=== PATIENT | female | born 1950 | race Caucasian/White ===

== ENCOUNTER 2016-11-30 16:58 | Emergency (ER) | payer OTHER ==
[~2016-11-30] VITALS: Ht 160 cm; Wt 52.0 kg
[~2016-11-30 16:58] MED LIST: BUPR150T3 PO; PROZ40CA PO; TYLE3 PO
[2016-11-30 17:01] VITALS: BP 142/83; PULSE 110; RESP 16; TEMP 97.9; O2SAT 99
[2016-11-30] MEDS ORDERED: PROPARACAINE HCL 0.5% OPHT SOLN 15 ML BTL LEFT EYE ONE (17:15)
[2016-11-30] MEDS ORDERED: BUPR300T PO (17:29)
[2016-11-30] MEDS ORDERED: HYDR4TAB PO (17:29)
[2016-11-30] MEDS ORDERED: ESCI20TA PO (17:29)
[2016-11-30] MEDS ORDERED: LORA1TAB12 PO (17:29)
[2016-11-30] MEDS ORDERED: AFIN10TA2 (17:29)
--- NOTE | 2016-11-30 17:36 | PD ---
HPI Chief Complaint: Eye Problems/Injury Time Seen by Provider: 17:30 Travel History International Travel<30 days: No Contact w/Intl Traveler<30days: No Traveled to known affect area: No History of Present Illness HPI 66-year-old female that presents to the ED for evaluation of left eye pain and blurry vision. Per patient she's had pain to left side of her face for about 2 weeks now. Per patient he wasn't too bad that today she developed severe pain in her left eye with movement. Per patient she has no pain otherwise. She denies any injuries to the eye. She does have a history of glaucoma and states that she worse glasses normally but she states that she's not able to open her eye mostly because she has a lot of pain. She does have a lot of tearing. She has no allergies to medication. She takes no medications for the eye. She states that she had tonight evaluation of a year ago which daughter her on glasses. She does have a history of breast cancer with metastasis. Per patient she takes chemotherapy for this. She denies any metastases to the brain or head. She states that she is able to see but she sees blurry and she cannot read numbers or letters. She does state that she has a history of a floater. She has no allergies to medication. She has not taken anything for this. Per patient the pain is 9 out of 10. Gets worse with movement. Nothing seems to make it better or worse. PFSH Past Medical History Cancer: Yes (breast CA) Diminished Hearing: No Tetanus Vaccination: > 5 Years Influenza Vaccination: No ?: Not Tubal Ligation: Yes Past Surgical History Gynecologic Surgery: Yes (LEFT LUMPECTOMY) Other Surgery: Yes (CARPAL TUNNEL RELEASE RIGHT HAND) Social History Alcohol Use: Yes (SOCIAL) Tobacco Use: No Substance Use: No Allergies-Medications (Allergen,Severity, Reaction): Coded Allergies: No Known Allergies (Verified , 11/30/16) Reported Meds & Prescriptions Reported Meds & Active Scripts Active Reported Bupropion HCl ER 24 HR (Bupropion HCl) 300 Mg Tab 300 Mg PO DAILY Hydromorphone (Hydromorphone HCl) 4 Mg Tab 4 Mg PO Q4-6H PRN Lorazepam 1 Mg Tab 1 Mg PO DAILY PRN Escitalopram (Escitalopram Oxalate) 20 Mg Tab 20 Mg PO DAILY Afinitor (Everolimus) 10 Mg Tab Review of Systems Except as stated in HPI: all other systems reviewed are Neg Physical Exam Narrative GENERAL: SKIN: Warm and dry. HEAD: Atraumatic. Normocephalic. EYES: Pupils equal and round 4 mm reactive to light and accommodation.. No scleral icterus. No injection or drainage. EOM intact bilaterally but has reproducible pain with looking up and down. More with looking down than looking up. Able to do it however. Patient has no sign of foreign body or deformity with inversion of the eyelids as well as with fluorescein stain. Ophthalmic exam revealed no sign of vessel disease but hard to assess secondary to cataract. No obvious papilledema noted. IOP was 18, 19, 17. ENT: No nasal bleeding or discharge. Mucous membranes pink and moist. Tongue is midline. No uvula deviation. No lymphadenopathy noted. TMs are clear with no sign of infection or perforation. No mastoid tenderness bilaterally. No rashes noted. No sinus tenderness noted. NECK: Trachea midline. No JVD. CARDIOVASCULAR: Regular rate and rhythm. RESPIRATORY: No accessory muscle use. Clear to auscultation. Breath sounds equal bilaterally. GASTROINTESTINAL: Abdomen soft, non-tender, nondistended. Hepatic and splenic margins not palpable. MUSCULOSKELETAL: Extremities without clubbing, cyanosis, or edema. No obvious deformities. NEUROLOGICAL: Awake and alert. No obvious cranial nerve deficits. Motor grossly within normal limits. Five out of 5 muscle strength in the arms and legs. Normal speech. PSYCHIATRIC: Appropriate mood and affect; insight and judgment normal. Data Data Last Documented VS Vital Signs Date Time Temp Pulse Resp B/P Pulse Ox O2 Delivery O2 Flow Rate FiO2 11/30/16 17:01 97.9 110 16 142/83 99 Orders Proparacaine 0.5% Opth Soln (Alcaine 0.5 (11/30/16 17:15) Complete Blood Count With Diff (11/30/16 17:25) Basic Metabolic Panel (Bmp) (11/30/16 17:25) C-Reactive Protein (Crp) (11/30/16 17:25) Westergren Sedimentation Rate (11/30/16 17:25) Magnesium (Mg) (11/30/16 17:25) Mri Brain W&W/O Contrast (11/30/16 ) Gadodiamide Pf Inj (Omniscan Pf Inj) (11/30/16 19:06) Prednisone (Deltasone) (11/30/16 20:00) Prednisone (Deltasone) (12/01/16 20:00) Admit To Inpatient (11/30/16 ) Vital Signs (Adult) Q4H (11/30/16 19:54) Neuro Checks Q4H (11/30/16 19:54) Activity Oob With Assistance (11/30/16 19:54) Diet Regular Basic (12/01/16 Breakfast) Sodium Chlor 0.9% 1000 Ml Inj (Ns 1000 M (11/30/16 19:54) Sodium Chloride 0.9% Flush (Ns Flush) (11/30/16 20:00) Sodium Chloride 0.9% Flush (Ns Flush) (11/30/16 21:00) Ondansetron Inj (Zofran Inj) (11/30/16 20:00) Bisacodyl Supp (Dulcolax Supp) (11/30/16 20:00) Comprehensive Metabolic Panel (12/01/16 06:00) Complete Blood Count With Diff (12/01/16 06:00) Scd Bilateral/Knee High ANGELA.BID (11/30/16 19:54) Adrián Bilateral/Knee High ANGELA.QSHIFT (11/30/16 19:54) Acetaminophen (Tylenol) (11/30/16 20:00) Acetamin-Hydrocod 325-5 Mg ([place] 5-325 (11/30/16 20:00) Morphine Inj (Morphine Inj) (11/30/16 20:00) Inpatient Certification (11/30/16 ) Admit Order (Ed Use Only) (11/30/16 20:14) Consult Ophthalmology (11/30/16 ) Labs Laboratory Tests Test 11/30/16 17:35 White Blood Count 3.9 TH/MM3 Red Blood Count 3.75 MIL/MM3 Hemoglobin 10.6 GM/DL Hematocrit 30.9 % Mean Corpuscular Volume 82.3 FL Mean Corpuscular Hemoglobin 28.1 PG Mean Corpuscular Hemoglobin 34.2 % Concent Red Cell Distribution Width 13.0 % Platelet Count 231 TH/MM3 Mean Platelet Volume 7.5 FL Neutrophils (%) (Auto) 63.1 % Lymphocytes (%) (Auto) 22.7 % Monocytes (%) (Auto) 8.2 % Eosinophils (%) (Auto) 2.6 % Basophils (%) (Auto) 3.4 % Neutrophils # (Auto) 2.5 TH/MM3 Lymphocytes # (Auto) 0.9 TH/MM3 Monocytes # (Auto) 0.3 TH/MM3 Eosinophils # (Auto) 0.1 TH/MM3 Basophils # (Auto) 0.1 TH/MM3 CBC Comment DIFF FINAL Differential Comment Erythrocyte Sedimentation Rate 107 mm/hr Sodium Level 143 MEQ/L Potassium Level 3.8 MEQ/L Chloride Level 106 MEQ/L Carbon Dioxide Level 28.2 MEQ/L Anion Gap 9 MEQ/L Blood Urea Nitrogen 12 MG/DL Creatinine 0.95 MG/DL Estimat Glomerular Filtration 59 ML/MIN Rate Random Glucose 101 MG/DL Calcium Level 9.2 MG/DL Magnesium Level 2.3 MG/DL C-Reactive Protein 23.00 MG/DL MDM Medical Decision Making Medical Screen Exam Complete: Yes Emergency Medical Condition: Yes Medical Record Reviewed: Yes Interpretation(s) CBC & BMP Diagram 11/30/16 17:35 ESR 100. CRP in the 20s Last Impressions Brain MRI 11/30/16 0000 Signed Impressions: Service Date/Time: Friday, November 30, 2016 19:00 - CONCLUSION: 1. Mild chronic white matter changes bilaterally characteristic of ischemic demyelination. 2. Sinus disease involving the left ethmoid and maxillary sinuses. Finn Driscoll MD Differential Diagnosis Glaucoma versus eye pain versus optic neuritis versus metastatic mass versus loss of vision versus facial pain versus infection Narrative Course 66-year-old female that presents to the ED for evaluation of left eye pain with no injury. Patient was properly examined and was found to have signs and symptoms of unclear etiology. Physical exam of the eye did not reveal any sign of deformity, foreign body, glaucoma at this time. Patient only has pain with range of motion of the eye. She does have a history of metastatic breast cancer. This time case was discussed in my attending Dr. Norwood who agrees that MRI and lab work recommended. Patient will be given IV pain medications. Patient agrees to proceed with workup. Labs and imaging came back essentially unremarkable except for elevated ESR and CRP. Case discussed with my attending Dr. Norwood who recommends speaking with ophthalmology. I spoke with ophthalmology who agrees to this is concerning for temporal arteritis. He recommends starting the patient on 100 mg of prednisone daily and he will reevaluate tomorrow. He wants also to see there is a Gen. surgery consultation to Be done to get temporal artery biopsy. Case was discussed with Dr. Gregory for hip as well as agrees to admission but wanted me to consult with general surgery to see whether patient is to stay at the [facility] or the main hospital. Dr. Recio spoke with my attending who recommends that the patient can stay at [facility] for now. Diagnosis Primary Impression: Temporal arteritis Admitting Information Admitting Physician Requests: Observation Benson Wakefield Nov 30, 2016 17:36
[2016-11-30 17:49] LABS: AUTOMATED NEUTROPHIL # 2.5 TH/MM3 (1.8-7.7); BASOPHIL # 0.1 TH/MM3 (0-0.2); BASOPHIL % 3.4 % (0.0-2.0); EOSINOPHIL # 0.1 TH/MM3 (0-0.4); EOSINOPHIL % 2.6 % (0.0-4.0); HEMATOCRIT 30.9 % (35.0-46.0); HEMO FLAGS DIFF FINAL; LYMPH % 22.7 % (9.0-44.0); LYMPHOCYTE # 0.9 TH/MM3 (1.0-4.8); MEAN CELL VOLUME 82.3 FL (80.0-100.0); MEAN CORPUSCULAR HEMOGLOBIN 28.1 PG (27.0-34.0); MEAN CORPUSCULAR HGB CONC 34.2 % (32.0-36.0); MONO % 8.2 % (0.0-8.0); NEUT % 63.1 % (16.0-70.0); PLATELET COUNT 231 TH/MM3 (150-450); RED BLOOD COUNT 3.75 MIL/MM3 (4.00-5.30); WHITE BLOOD COUNT 3.9 TH/MM3 (4.0-11.0)
[2016-11-30 17:56] LABS: POTASSIUM 3.8 MEQ/L (3.5-5.1)
[2016-11-30 18:00] LABS: BICARBONATE 28.2 MEQ/L (21.0-32.0); MAGNESIUM 2.3 MG/DL (1.5-2.5)
[2016-11-30] MEDS ORDERED: GADODIAMIDE PF 287 MG/ML 10 ML VIAL (for RAD MRI) IV ONE (19:06)
--- NOTE | 2016-11-30 19:31 | RADHPO ---
EXAM DATE/TIME: 11/30/2016 19:00 [facility] COMPARISON: No previous studies available for comparison. INDICATIONS : Left eye pain, and blurred vision. CONTRAST: 10 cc Omniscan (gadodiamide) IV MEDICAL HISTORY : Carcinoma, breast. SURGICAL HISTORY : Tubal ligation. Breast lumpectomy. ENCOUNTER: Initial ACUITY: 1 day PAIN SCORE: 7/10 LOCATION: Left eye TECHNIQUE: Multiplanar, multisequence MRI of the brain was performed both prior to and following the administrat ion of paramagnetic contrast. FINDINGS: CEREBRUM: The ventricles are normal for age. No evidence of midline shift, mass lesion, hemorrhage or acute in farction. No extraaxial fluid collections are seen. The pituitary gland and suprasellar cistern are normal in configuration. WHITE MATTER: No significant signal abnormalities are seen in the white matter. A few high signal spots are seen in the white matter tracts bilaterally characteristic of ischemic demyelinization. POSTERIOR FOSSA: The cerebellum and brainstem are intact. The 4th ventricle is midline. The cerebellopontine angle is unremarkable. The cerebellar tonsils are normal in position. DIFFUSION IMAGING: No focal areas of restricted diffusion are seen. No evidence of acute infarction. EXTRACRANIAL: The visualized portions of the orbits are unremarkable. Sclerotic sinus disease with opacification of the left maxillary sinus. There is sinus disease in the left ethmoid sinuses. POST-CONTRAST: No abnormal areas of parenchymal or dural enhancement. No evidence of blood-brain barrier breakdown. CONCLUSION: 1. Mild chronic white matter changes bilaterally characteristic of ischemic demyelination. 2. Sinus disease involving the left ethmoid and maxillary sinuses. Finn Driscoll MD on November 30, 2016 at 19:26 Board Certified Radiologist. This report was verified electronically.
[2016-11-30] MEDS ORDERED: predniSONE 50 MG TAB PO ONE (20:00)
[2016-11-30] MEDS ORDERED: MORPHINE SULFATE 4 MG/ML INJ IV PRN (20:00)
[2016-11-30] MEDS ORDERED: BISACODYL 10 MG SUPP RECTAL PRN (20:00)
[2016-11-30] MEDS ORDERED: ONDANSETRON HCL 4 MG/2 ML VIAL IVP PRN (20:00)
[2016-11-30] MEDS ORDERED: SODIUM CHLORIDE 0.9% FLUSH 10 ML FLUSH IV FLUSH PRN (20:00)
[2016-11-30] MEDS ORDERED: ACETAMINOPHEN 325 MG TAB PO PRN (20:00)
[2016-11-30] MEDS ORDERED: ACETAMINOPHEN/HYDROcodone 325 MG/5 MG TAB PO PRN (20:00)
[2016-11-30 20:26] VITALS: BP 135/74; PULSE 106; RESP 18; O2SAT 96
[2016-11-30] MEDS: SODIUM CHLOR 0.9% 1000 ML INJ 1,000 ML IV SCH (20:42)
[2016-11-30] MEDS: SODIUM CHLORIDE 0.9% FLUSH 10 ML FLUSH IV FLUSH SCH (20:59)
[2016-12-01 00:26] VITALS: BP 129/75; PULSE 91; RESP 18; TEMP 99.8; O2SAT 94
[2016-12-01] MEDS: SODIUM CHLOR 0.9% 1000 ML INJ 1,000 ML IV SCH (05:54)
[2016-12-01 06:44] LABS: BASOPHIL % 0.1 % (0.0-2.0); EOSINOPHIL % 0.6 % (0.0-4.0); HEMATOCRIT 29.7 % (35.0-46.0); HEMO FLAGS DIFF FINAL; LYMPH % 12.9 % (9.0-44.0); LYMPHOCYTE # 0.4 TH/MM3 (1.0-4.8); MEAN CELL VOLUME 82.2 FL (80.0-100.0); MEAN CORPUSCULAR HEMOGLOBIN 27.8 PG (27.0-34.0); MEAN CORPUSCULAR HGB CONC 33.8 % (32.0-36.0); NEUT % 85.4 % (16.0-70.0); PLATELET COUNT 238 TH/MM3 (150-450); RED BLOOD COUNT 3.62 MIL/MM3 (4.00-5.30); RED CELL DISTRIBUTION WIDTH 12.4 % (11.6-17.2); WHITE BLOOD COUNT 3.4 TH/MM3 (4.0-11.0)
[2016-12-01 06:53] LABS: CHLORIDE 109 MEQ/L (98-107); SODIUM (NA) 144 MEQ/L (136-145)
[2016-12-01 07:13] LABS: ALKALINE PHOSPHATASE 101 U/L (45-117); ALT (GPT) 28 U/L (10-53); ANION GAP 10 MEQ/L (5-15); AST (GOT) 20 U/L (15-37); BLOOD UREA NITROGEN 12 MG/DL (7-18); GLOMERULAR FILTRATION RATE 77 ML/MIN (>89); TOTAL BILIRUBIN ADULT 0.3 MG/DL (0.2-1.0)
[2016-12-01 08:00] VITALS: BP 109/73; PULSE 105; RESP 18; TEMP 96.1; O2SAT 98
[2016-12-01] MEDS: SODIUM CHLORIDE 0.9% FLUSH 10 ML FLUSH IV FLUSH SCH (08:23)
--- NOTE | 2016-12-01 09:51 | MB ---
cc: MIKKI GARNER M.D. DATE OF CONSULTATION: 12/01/2016 REASON FOR CONSULTATION: Left eye pain. REQUESTING PHYSICIAN Dr. Benson Wakefield in the ER. HISTORY OF PRESENT ILLNESS The patient is a 66-year-old female with a 2-3 week history of left-sided facial pain and headache (the patient states she never "has headaches"). In the past couple of days she has had increasing left-sided orbital pain with eye movement. To me today, she denies any real change in vision recently. She was evaluated in the ED last night. Her MRI showed some left-sided ethmoid and maxillary sinus disease. Her sed rate and C-reactive protein were both markedly elevated. The patient was admitted for high-dose steroids, initiation of workup for giant cell arteritis. PAST MEDICAL HISTORY Metastatic breast cancer, on chemotherapy. PAST SURGICAL HISTORY Breast surgery and carpal tunnel. MEDICATION/ALLERGIES See chart. PHYSICAL EXAMINATION The physical examination is limited to the eyes and ocular adnexa. Visual acuity using her current correction (prescription sunglasses) is about 20/40 in each eye using a hand-held near card. Ocular motility is full. There is no Eliel Mary pupil. Penlight examinations of anterior segment is normal except for mild cataract in each eye. Fundus examination shows basically no obvious pathology. There was no optic nerve head edema. IMPRESSION A 66-year-old female with metastatic breast cancer with new onset of facial pain, pain with eye movement and headache. There is no evidence or complaint of acute vision loss. There is no complaints of scalp tenderness or claudication suggestive of temporal arteritis. Her sed rate and C-reactive protein (of course completely nonspecific for giant cell arteritis) are markedly elevated. Certainly the patient warrants workup for giant cell arteritis. She can be discharged to home on 100 mg per day of oral prednisone, as long as her primary care doctor is on board, and she has an evaluation to be seen for a temporal artery biopsy within no more than 10-14 days. Of course if the biopsy is negative, then the duration of prednisone treatment really relies on clinical suspicion. Due to the patient's insurance, I will not be able to see her after discharge, so another important aspect is to make sure she has opthalmology followup with one of the [employer] "eye doctors". MD ZAID Hutson /9:25 AM 9:34 AM
[2016-12-01] MEDS ORDERED: INFLUENZA VIRUS VACCINE (QUADRIVALENT) 0.5 ML SYR IM ONE (10:00)
[2016-12-01] MEDS ORDERED: PNEUMOCOCCAL POLYVALENT INJ 25 MCG/0.5 ML SYR IM ONE (10:00)
[2016-12-01] MEDS ORDERED: PRED50 PO (10:03)
[2016-12-01 12:00] VITALS: BP 110/70; PULSE 90; RESP 18; TEMP 96.4; O2SAT 98
--- NOTE | 2016-12-01 19:56 | HHI.HP ---
HPI Service [facility] Primary Care Physician Suzi Palacios M.D. Admission Diagnosis temporal arteritis Diagnoses: Travel History International Travel<30 Days: No Contact w/Intl Traveler <30 Da: No Traveled to Known Affected Are: No History of Present Illness 66-year-old female who presents to the ER with a 3 week history of constant worsening left frontotemporal pain which is worse with eye movement. She has chronic poor vision, but no recent vision changes. She denies any fevers, chills, nausea, vomiting, chest pain, shortness of breath, lightheadedness, dizziness, focal weakness, and says she otherwise feels all right. She does have a history of breast cancer status post resection for which she continues on chemotherapy. She reports that this is in remission. She does have a history of depression. Denies any suicidal ideation. Review of Systems performed and negative except for HPI and past medical history. Past Family Social History Past Medical History Breast cancer status post resection. On chemotherapy. Follows with Dr. mohr Depression. Past Surgical History Surgical repair of right wrist fracture. Lumpectomy of left breast Reported Medications Reported Meds & Active Scripts Active Reported Bupropion HCl ER 24 HR (Bupropion HCl) 300 Mg Tab 300 Mg PO DAILY Hydromorphone (Hydromorphone HCl) 4 Mg Tab 4 Mg PO Q4-6H PRN Lorazepam 1 Mg Tab 1 Mg PO DAILY PRN Escitalopram (Escitalopram Oxalate) 20 Mg Tab 20 Mg PO DAILY Afinitor (Everolimus) 10 Mg Tab Allergies: Coded Allergies: No Known Allergies (Verified , 11/30/16) Family History Patient reports that both of her parents in their 80s and 90s secondary to strokes Social History Nonsmoker. Nondrinker. Denies any illicit drugs. Physical Exam Vital Signs Vital Signs Date Time Temp Pulse Resp B/P Pulse Ox O2 Delivery O2 Flow Rate FiO2 12/01/16 12:00 96.4 90 18 110/70 98 12/01/16 08:00 96.1 105 18 109/73 98 12/01/16 00:26 99.8 91 18 129/75 94 11/30/16 20:26 106 18 135/74 96 Room Air Physical Exam GENERAL: This is a well-nourished, well-developed patient, in no apparent distress.alert and oriented 3. SKIN: No rashes, ecchymoses or lesions. Cool and dry. HEAD: Atraumatic. Normocephalic. No temporal or scalp tenderness. EYES: Pupils equal round and reactive. Extraocular motions intact. No scleral icterus. No injection or drainage. ENT: Nose without bleeding, purulent drainage or septal hematoma. Throat without erythema, tonsillar hypertrophy or exudate. Uvula midline. Airway patent. NECK: Trachea midline. No JVD or lymphadenopathy. Supple, nontender, no meningeal signs. CARDIOVASCULAR: Regular rate and rhythm without murmurs, gallops, or rubs. RESPIRATORY: Clear to auscultation. Breath sounds equal bilaterally. No wheezes , rales, or rhonchi. GASTROINTESTINAL: Abdomen soft, non-tender, nondistended. No hepato-splenomegaly , or palpable masses. No guarding. MUSCULOSKELETAL: Extremities without clubbing, cyanosis, or edema. No joint tenderness, effusion, or edema noted. No calf tenderness. Negative Homans sign bilaterally. NEUROLOGICAL: Awake and alert. Cranial nerves II through XII intact. Motor and sensory grossly within normal limits. Five out of 5 muscle strength in all muscle groups. Normal speech. Laboratory Laboratory Tests Test 12/01/16 06:27 White Blood Count 3.4 Red Blood Count 3.62 Hemoglobin 10.1 Hematocrit 29.7 Mean Corpuscular Volume 82.2 Mean Corpuscular Hemoglobin 27.8 Mean Corpuscular Hemoglobin 33.8 Concent Red Cell Distribution Width 12.4 Platelet Count 238 Mean Platelet Volume 7.2 Neutrophils (%) (Auto) 85.4 Lymphocytes (%) (Auto) 12.9 Monocytes (%) (Auto) 1.0 Eosinophils (%) (Auto) 0.6 Basophils (%) (Auto) 0.1 Neutrophils # (Auto) 3.0 Lymphocytes # (Auto) 0.4 Monocytes # (Auto) 0.0 Eosinophils # (Auto) 0.0 Basophils # (Auto) 0.0 CBC Comment DIFF FINAL Differential Comment Sodium Level 144 Potassium Level 4.0 Chloride Level 109 Carbon Dioxide Level 25.0 Anion Gap 10 Blood Urea Nitrogen 12 Creatinine 0.75 Estimat Glomerular Filtration 77 Rate Random Glucose 160 Calcium Level 8.3 Total Bilirubin 0.3 Aspartate Amino Transf 20 (AST/SGOT) Alanine Aminotransferase 28 (ALT/SGPT) Alkaline Phosphatase 101 Total Protein 6.6 Albumin 2.4 Result Diagram: 12/01/1662612/01/16626 Assessment and Plan Assessment and Plan Suspected temporal arteritis. -High-dose prednisone, to be tapered by primary care. -Patient was urged to follow with primary care, will need ophthalmology follow- up as outpatient as well. -Patient seen by ophthalmology. Appreciate assistance. -Appreciate case management assistance. We will arrange for biopsy of temporal artery within the next 10-14 days. Discussed with patient, who conveys understanding. //Leukopenia. No signs of acute infection. Could be secondary to autoimmune process. Follow-up primary care. Breast cancer. Patient will follow-up with primary oncologist. Depression. Chronic. Continue home medications. Prophylaxis. Patient is ambulatory. Discussed Condition With patient, nurse, case finisher. Jeremy Pagan MD Dec 01, 2016 19:56
[2016-12-01] MEDS ORDERED: predniSONE 50 MG TAB PO SCH (20:00)
== END 2016-12-01 14:00 | disposition home or self-care (01) ==
LOC: PHEFT 16:58 → PHEDA 20:17 → INTOOBSV 20:17 → UNDOADMOB 20:17 → OBSVTOIN 20:17 → PHEDA 21:36 → PH3A 21:36 → PHEFT 12-01 14:00 → UNDODISOB 12-01 14:00
DX: M31.6 Other giant cell arteritis (principal); C50.919 Malignant neoplasm of unspecified site of unspecified female breast; Z23 Encounter for immunization
CPT/HCPCS: 70553; 80048; 80053; 83735; 85025; 85652; 86140; 90732; 99285; A9579; G0008; G0009; G0378; J7030; J7512; Q2038; 90471; 90686